=== PATIENT | male | born 1970 | race Caucasian/White ===

== ENCOUNTER 2019-01-28 20:50 | Emergency (ER) | payer SELFPAY ==
[2019-01-28] MEDS ORDERED: ACETAMINOPHEN 325 MG TAB PO ONE (21:17)
--- NOTE | 2019-01-28 21:25 | Emergency Department Record ---
History of Present Illness - General Chief complaint: Head Injury Stated complaint: HIT IN HEAD/PRY BAR Time Seen by Provider: 01/28/19 21:05 Source: Patient Mode of Arrival: Ambulatory Limitations: No limitations - History of Present Illness Initial comments: The patient was hit over the L [place]yg[place] area with a solomon bar at work an hour ago. He had no LOC but it did hurt immediately. Since the patient has had mild pain but no visual changes, nausea, vomiting, or neck pain. His Td is UTD. Complaint: Head injury, Other Onset/Timin -: Minutes(s) Mechanism of Injury: Machine or tool related injury Location: Face Loss of Consciousness: No Previous Trauma to this Area: No Place: Work Severity scale (1-10): 2 Quality: Dull Consistency: Constant Associated Symptoms: Denies other symptoms - Related Data Home Medications Medication Instructions Recorded Confirmed Last Taken Buspirone HCl 40 mg PO DAILY 01/28/19 01/28/19 01/28/19 Nefazodone HCl 1 tab PO DAILY 01/28/19 01/28/19 01/28/19 Previous Rx's Medication Instructions Recorded Amoxicillin 500 mg PO TID #21 capsule 01/28/19 Allergies/Adverse reactions: Allergies Allergy/AdvReac Type Severity Reaction Status Date / Time No Known Drug Allergies Allergy Verified 01/28/19 21:10 Travel Screening - Travel/Exposure Within Last 30 Days Have you traveled within the last 30 days?: No - Travel/Exposure Within Last Year Have you traveled outside the [place] in the last year?: No - Additonal Travel Details Have you been exposed to anyone with a communicable illness?: No - Travel Symptoms Symptom Screening: None Review of Systems Constitutional: Denies: Chills, Fever Eyes: Denies: Eye discharge ENT: Denies: Congestion Respiratory: Denies: Cough, Dyspnea Past Medical History - SOCIAL HISTORY Smoking Status: Never smoker Alcohol Use: Occasional Drug Use: None - RESPIRATORY Hx Respiratory Disorders: No - CARDIOVASCULAR Hx Cardio Disorders: No - NEURO Hx Neuro Disorders: No - GI Hx GI Disorders: No - Hx Genitourinary Disorders: No - ENDOCRINE Hx Endocrine Disorders: No - MUSCULOSKELETAL Hx Musculoskeletal Disorders: No - PSYCH Hx Psych Problems: No - HEMATOLOGY/ONCOLOGY Hx Hematology/Oncology Disorders: No Family Medical History Any Significant Family History?: No Physical Exam - General General Appearance: Alert, Oriented x3, Cooperative, No acute distress - Head Head exam: Atraumatic, Normocephalic, Normal inspection Image of Face/Head: 1 - Area of trauma, swelling, and abrasions. - Eye Eye exam: Normal appearance, PERRL, EOMI. negative: Conjunctival injection - ENT ENT exam: negative: Normal exam (There is a 1.5 cm laceration at the site of the trauma over the L zygomatic arch. There is mild swelling and tenderness around the laceration.) - Neck Neck exam: Normal inspection, Full ROM. negative: Tenderness - Respiratory Respiratory exam: Normal lung sounds bilaterally. negative: Respiratory distress - Cardiovascular Cardiovascular Exam: Regular rate, Normal rhythm, Normal heart sounds - Extremities Extremities exam: Normal inspection, Full ROM, Normal capillary refill. negati ve: Tenderness - Neurological Neurological exam: Alert, Normal gait, Oriented X3. negative: Abnormal gait, Altered, Motor sensory deficit Course Vital Signs 01/28/19 21:04 Temperature 98.6 F Pulse Rate [ 97 H Left] Respiratory 16 Rate Blood Pressure 162/92 [Left] Pulse Ox 98 - Reevaluation(s) Reevaluation #1: The patient is doing very well at this time. He denies any significant head or facial pain. His CT is neg for any acute changes so we will discharge the patient for F/U next week for suture removal. 01/28/19 22:07 Reevaluation #2: Procedure note: The patient's 1.5 cm L facial lac was anesth. with 1 cc Lido 1% with EPi. The lac was cleansed with betadine and lavaged with sterile saline. The lac was closed with 4 5.0 nylon sutures. There were no complications. 01/28/19 22:08 Reevaluation #3: Due to the patient's dental abscess on CT I will place the patient on AMox. and he is to see a Dentist [facility]. 01/28/19 22:13 Medical Decision Making - Data Complexity MDM Data: X-Ray Ordered and/or Reviewed - Radiology Data Radiology results: Report reviewed (Head and Facial bones: Neg for any acute changes.) Disposition Disposition: Discharge Clinical Impression: Contusion of face Qualifiers: Encounter type: initial encounter Qualified Code(s): S00.83XA - Contusion of other part of head, initial encounter Facial laceration Qualifiers: Encounter type: initial encounter Qualified Code(s): S01.81XA - Laceration without foreign body of other part of head, initial encounter Disposition: Home, Self-Care Condition: (2) Stable Instructions: Facial Contusion (ED), Facial Laceration (ED) Additional Instructions: Please use Tylenol or Motrin for pain and keep the laceration clean. Keep the lac dry for 2 days then no soaking or swimming. Return to the ER in 7 days for suture removal. Return sooner to the ER for any worsening pain, fever, vomiting, or confusion. Prescriptions: Amoxicillin 500 mg PO TID #21 capsule Forms: Patient Portal Access Time of Disposition: 22:10 Quality - Quality Measures Quality Measures: Blunt Head Trauma (>2yr) - Blunt Head Trauma - Adult Quality Measure: Measure #415: Utilization of CT for Minor Blunt Head Trauma ICD10 Codes Entered: Yes View Details: Yes Was CT ordered: Yes Does Patient Have Any of the Following: Multisystem Trauma Azael Score: Please complete [place] Coma Scale above Utilization of CT for Minor Blunt Head Trauma: Patient Excluded [G9531] - Blood Pressure Screening View Details: Yes Does Patient Have Any of the Following: No Blood Pressure Classification: Hypertensive Reading Systolic Measurement: 162 Diastolic Measurement: 92 Screening for High Blood Pressure: < First Hypertensive BP, F/U Documented > [G8950] First Hypertensive Follow-up Interventions: Referral to alternative/primary care provider.
--- NOTE | 2019-01-28 21:58 | CT SCAN REPORT ---
EXAMINATION: HEAD/FACIAL BONES WO EXAM DATE: 01/28/2019 9:43 PM TECHNIQUE: Continues axial images from the cerebral convexities to the foramen magnum were obtained without contrast. Then contiguous axial images from the skull base to the mental protuberance were ob tained without contrast. Sagittal and coronal 2-D/MIP reformatted images were obtained for better nate tomic delineation. INDICATION: trauma L zygoma COMPARISON: Initial FINDINGS: Brain volume is normal. No acute intracranial hemorrhage mass effect or midline shift. No CT evidence of acute infarct. Ventricles basal cisterns and sulci are within normal limits. Mild mucosal thicken ing in the right sphenoid sinus. Orbits are unremarkable. High-resolution facial bone images reveal the following: The orbits, nasal bones, zygomatic arches, w alls of the maxillary antra and pterygoid plates and mandible are all intact. 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 Dental raji involving the posterior most tooth of the left lowe r jaw with associated periapical abscess. IMPRESSION: 1. No acute intracranial process. 2. No acute cranial facial fracture. The zygomatic arches are intact. 3. Dental raji as well as periapical abscess involving the posterior most tooth of the left lower ja w. Dictated by: John Smith MD on 01/28/2019 9:53 PM. .
[2019-01-28 22:53] LABS: AMPHETAMINE SCREEN URINE NOT DETECTED; BARBITURATE SCREEN URINE NOT DETECTED; BENZODIAZEPINE SCREEN URINE NOT DETECTED; COCAINE SCREEN URINE NOT DETECTED; METHADONE SCREEN URINE NOT DETECTED; METHAMPHETAMINE SCREEN NOT DETECTED; OPIATE SCREEN URINE NOT DETECTED; OXYCODONE SCREEN URINE NOT DETECTED; PHENCYCLIDINE SCREEN URINE NOT DETECTED; PROPOXYPHENE SCREEN URINE NOT DETECTED; THC SCREEN URINE NOT DETECTED; TRICYCLIC ANTIDEPRESSANT SCRN NOT DETECTED
== END 2019-01-28 22:40 | disposition home or self-care (01) ==
LOC: ER 20:50
DX: S01.412A Laceration without foreign body of left cheek and temporomandibular area, initial encounter (principal); S00.83XA Contusion of other part of head, initial encounter; K04.7 Periapical abscess without sinus; W22.8XXA Striking against or struck by other objects, initial encounter; Y92.63 Factory as the place of occurrence of the external cause; Y99.0 Civilian activity done for income or pay
CPT/HCPCS: 12011; 70450; 70486; 80305; 99284

== ENCOUNTER 2019-02-04 23:18 | Emergency (ER) | payer SELFPAY ==
--- NOTE | 2019-02-04 23:26 | Emergency Department Record ---
History of Present Illness - General Stated Complaint: STITCHES REMOVED Time Seen by Provider: 02/04/19 23:20 Source: Patient Mode of Arrival: Ambulatory Limitations: No limitations - History of Present Illness Initial Commments: 48 yo male presents to ED for suture removal following laceration repair to the left chance-auricular region. Patient denies redness, swelling, or drainage from the affected area. Patient denies complications following repair. Onset/Timin -: Week(s) Location: Face Context: Accidental Associated Symptoms: None - Azael Coma Scale Eye Response: (4) Open spontaneously Motor Response: (6) Obeys commands Verbal Response: (5) Oriented [place] Total: 15 - Related Data Previous Rx's Medication Instructions Recorded Amoxicillin 500 mg PO TID #21 capsule 01/28/19 Allergies Allergy/AdvReac Type Severity Reaction Status Date / Time No Known Drug Allergies Allergy Verified 01/28/19 21:10 Travel Screening - Travel/Exposure Within Last 30 Days Have you traveled within the last 30 days?: No - Travel/Exposure Within Last Year Have you traveled outside the [place] in the last year?: No - Additonal Travel Details Have you been exposed to anyone with a communicable illness?: No - Travel Symptoms Symptom Screening: None Review of Systems Constitutional: Denies: Chills, Fever, Malaise, Night sweats Eyes: Denies: Eye discharge, Eye pain ENT: Denies: Congestion, Ear pain, Epistaxis Respiratory: Denies: Cough, Dyspnea Cardiovascular: Denies: Chest pain, Dyspnea on exertion Endocrine: Denies: Fatigue, Heat or cold intolerance Gastrointestinal: Denies: Abdominal pain, Nausea, Vomiting Genitourinary: Denies: Incontinence, Retention Musculoskeletal: Denies: Arthralgia, Back pain Skin: Reports: Other (Laceration repair). Denies: Bruising, Change in color Neurological: Denies: Abnormal gait, Confusion, Headache, Seizure Psychiatric: Denies: Anxiety Hematological/Lymphatic: Denies: Anemia, Blood Clots Past Medical History - SOCIAL HISTORY Smoking Status: Never smoker Alcohol Use: None Drug Use: None - RESPIRATORY Hx Respiratory Disorders: No - CARDIOVASCULAR Hx Cardio Disorders: No - NEURO Hx Neuro Disorders: No - GI Hx GI Disorders: No - Hx Genitourinary Disorders: No - ENDOCRINE Hx Endocrine Disorders: No - MUSCULOSKELETAL Hx Musculoskeletal Disorders: No - PSYCH Hx Psych Problems: No - HEMATOLOGY/ONCOLOGY Hx Hematology/Oncology Disorders: No Family Medical History Any Significant Family History?: No Physical Exam - General General Appearance: Alert, Oriented x3, Cooperative, No acute distress Limitations: No limitations - Head Head exam: Normocephalic Head exam detail: Laceration (Well-healed laceration repair to the left chance- auricular region on examination, (4) sutures removed.). negative: Abrasion, Contusion, Mera's sign, General tenderness, Hematoma - Eye Eye exam: Normal appearance. negative: Conjunctival injection, Periorbital swelling, Periorbital tenderness, Scleral icterus - ENT Ear exam: negative: Auricular hematoma, Auricular trauma Nasal Exam: negative: Active bleeding, Discharge, Dried blood, Foreign body Mouth exam: negative: Drooling, Laceration, Muffled voice, Tongue elevation - Neck Neck exam: Normal inspection. negative: Meningismus, Tenderness - Respiratory Respiratory exam: Normal lung sounds bilaterally. negative: Rales, Respiratory distress, Rhonchi, Stridor - Cardiovascular Cardiovascular Exam: Regular rate, Normal rhythm, Normal heart sounds - GI/Abdominal GI/Abdominal exam: Soft. negative: Rebound, Rigid, Tenderness - Rectal Rectal exam: Deferred - exam: Deferred - Extremities Extremities exam: Normal inspection. negative: Pedal edema, Tenderness - Back Back exam: Denies: CVA tenderness (R), CVA tenderness (L) - Neurological Neurological exam: Alert, Normal gait, Oriented X3 - Psychiatric Psychiatric exam: Normal affect, Normal mood - Skin Skin exam: Normal color. negative: Abrasion Type of lesion: negative: abrasion Course Vital Signs 02/04/19 23:23 Temperature 98.2 F Pulse Rate 64 Respiratory 16 Rate Blood Pressure 140/88 Pulse Ox 98 - Reevaluation(s) Reevaluation #1: 02/04/19 23:29 Procedure note: (4) sutures were removed form the left pre-auricular region without complications. Patient appears stable for discharge at this time. Disposition Disposition: Discharge Clinical Impression: Visit for suture removal Disposition: Home, Self-Care Condition: (2) Stable Instructions: Stitches Removal (ED) Additional Instructions: Return to ED if your symptoms worsen or if you have any concerns. Follow-up with your family doctor in 3-5 days as directed. Time of Disposition: 23:26 Quality - Quality Measures Quality Measures: N/A - Blood Pressure Screening Does Patient Have Any of the Following: No Blood Pressure Classification: Pre-Hypertensive BP Reading Systolic Measurement: 140 Diastolic Measurement: 88 Screening for High Blood Pressure: < Pre-Hypertensive BP, F/U Documented > [G8950] Pre-Hypertensive Follow-up Interventions: Referral to alternative/primary care provider.
== END 2019-02-04 23:34 | disposition home or self-care (01) ==
LOC: ER 23:18
DX: Z48.02 Encounter for removal of sutures (principal)